=== PATIENT | male | born 1990 | race American Indian/Alaskan Native ===

== ENCOUNTER 2021-02-07 15:43 | Emergency (ER) | payer SELFPAY ==
[2021-02-07] MEDS ORDERED: LORazepam 2 MG/ML VIAL IV ONE ×3 (17:03→22:43)
[2021-02-07] MEDS ORDERED: SODIUM CHLORIDE 0.9% 1000 ML 1,000 ML IV ONE ×2 (17:06→22:20)
[2021-02-07 17:16] LABS: Bacteria,Urine 3+ /HPF (Negative); Bilirubin,Urine NEG (Negative); Blood,Urine NEG (Negative); Color,Urine Amber (Yellow); Granular Casts,Urine 2 /LPF; Hyaline Casts,Urine 2 /LPF; Mucus,Urine 1+ /HPF
[2021-02-07 17:20] LABS: Benzodiazepines Screen,Urine Negative; Methadone Screen,Urine Negative; Opiate Screen,Urine Negative
--- NOTE | 2021-02-07 17:23 | Emergency Department Report ---
ED General Adult HPI - General Chief complaint: Overdose Stated complaint: METH, WEED Time Seen by Provider: 02/07/21 17:03 Source: patient Mode of arrival: Wheelchair Limitations: Altered Mental Status - History of Present Illness Initial comments: 30-year-old male, history of schizophrenia, presents to ED for evaluation. Patient was wandering around a hotel when someone called 911 because patient appeared to be suspicious. EMS states patient revealed to them that he has been using methamphetamine and marijuana today. Patient denied any SI or HI. Appeared to be responding to internal stimuli. EMS reports patient appears to be anxious and tremulous. States vitals were normal en route. Upon placing patient in the room, patient apparently found a 19-gauge, 1.5 inch needle, and stuck it in his right neck. The needle was removed by staff, and dressing placed over it. No active bleeding, no hematoma present. Patient states "I am addicted to meth." Patient has no complaints. -: This afternoon Severity scale (0 -10): 0 Improves with: none Worsens with: none Associated Symptoms: denies other symptoms - Related Data Allergies Allergy/AdvReac Type Severity Reaction Status Date / Time Unable to Assess Allergy Unverified 02/07/21 17:04 ED Review of Systems ROS: Stated complaint: METH, WEED Other details as noted in HPI Comment: All other systems reviewed and negative Psychiatric: auditory hallucinations ED Past Medical Hx - Past Medical History Previous Medical History?: Yes Hx Diabetes: Yes Hx Psychiatric Treatment: Yes (schizophrenia) - Surgical History Additional Surgical History: unknown ED Physical Exam - General Limitations: Altered Mental Status General appearance: alert, in no apparent distress - Head Head exam: Present: atraumatic, normocephalic - Eye Eye exam: Present: normal appearance - ENT ENT exam: Present: mucous membranes moist - Neck Neck exam: Present: normal inspection, other (No hematoma present, no active bleeding) - Respiratory Respiratory exam: Present: normal lung sounds bilaterally. Absent: respiratory distress - Cardiovascular Cardiovascular Exam: Present: normal rhythm, tachycardia - GI/Abdominal GI/Abdominal exam: Present: soft. Absent: distended, tenderness - Extremities Exam Extremities exam: Present: normal inspection - Neurological Exam Neurological exam: Present: alert, CN II-XII intact. Absent: motor sensory deficit - Psychiatric Psychiatric exam: Present: flat affect, other (Appears to be responding to internal stimuli) - Skin Skin exam: Present: warm, dry, intact, normal color ED Course Vital Signs 02/07/21 02/07/21 02/07/21 16:59 17:01 17:04 Temperature 98.9 F Pulse Rate 121 H 124 H 112 H Respiratory 28 H 25 H 26 H Rate Blood Pressure 176/95 Blood Pressure 176/95 [Left] O2 Sat by Pulse 97 100 Oximetry 02/07/21 02/07/21 02/07/21 17:31 18:00 18:34 Temperature Pulse Rate 124 H 112 H Respiratory 28 H 27 H Rate Blood Pressure 174/117 183/114 183/114 Blood Pressure [Left] O2 Sat by Pulse Oximetry 02/07/21 02/07/21 02/07/21 19:01 19:31 20:01 Temperature Pulse Rate 97 H 99 H Respiratory 32 H 21 Rate Blood Pressure 183/112 192/164 187/113 Blood Pressure [Left] O2 Sat by Pulse Oximetry 02/07/21 02/07/21 02/07/21 20:09 20:31 21:01 Temperature Pulse Rate 83 82 Respiratory 16 24 Rate Blood Pressure 187/113 165/120 170/121 Blood Pressure [Left] O2 Sat by Pulse Oximetry 02/07/21 02/07/21 02/07/21 21:31 22:01 22:30 Temperature Pulse Rate 81 98 H Respiratory 14 18 Rate Blood Pressure 170/121 175/112 175/112 Blood Pressure [Left] O2 Sat by Pulse Oximetry 02/07/21 02/07/21 02/07/21 22:31 22:51 23:01 Temperature Pulse Rate 87 111 H Respiratory 30 H 25 H 13 Rate Blood Pressure 170/119 153/92 152/101 Blood Pressure [Left] O2 Sat by Pulse Oximetry 02/07/21 02/08/21 02/08/21 23:31 00:11 01:00 Temperature 98.2 F Pulse Rate 112 H 112 H Respiratory 21 18 Rate Blood Pressure 146/95 161/106 Blood Pressure 107/65 [Left] O2 Sat by Pulse 97 Oximetry 02/08/21 02/08/21 02/09/21 08:44 20:02 04:18 Temperature 97.8 F 98.2 F Pulse Rate 73 79 Respiratory 18 18 18 Rate Blood Pressure Blood Pressure 110/67 154/99 [Left] O2 Sat by Pulse 100 96 99 Oximetry 02/09/21 02/09/21 08:17 09:53 Temperature 97.9 F 97.9 F Pulse Rate 81 69 Respiratory 20 18 Rate Blood Pressure 125/83 Blood Pressure 125/83 [Left] O2 Sat by Pulse 99 98 Oximetry - Reevaluation(s) Reevaluation #1: 02/07/21 19:25 Patient somewhat improved. Tachycardia has resolved. He is now speaking to me and answering questions. When asked why he stuck the needle in his neck, patient states "I do not know. It's been a long day." Blood pressure is elevated. Patient states he has been told he has high blood pressure before, but he is not taking any medication for it. Patient also reports history of schizophrenia, reports auditory hallucinations, and states that he is not on any psychiatric meds currently. ED Medical Decision Making - Lab Data Result diagrams: 02/07/21 17:08 02/08/21 20:37 - Radiology Data Radiology results: report reviewed, image reviewed - Medical Decision Making 30-year-old male presents to ED after using methamphetamine and marijuana. Upon arrival here in the ED patient stuck himself in the neck with a 19-gauge needle. When asked if this was a suicide attempt, patient reports that he just had a long day. Ativan 2 mg IV were given at that time, along with 1 L bolus of IV fluids. CT head, CTA neck are normal. CT abdomen and pelvis was obtained s econdary to elevated liver enzymes. This also appears to be normal. Initial labs showed potassium of 5.7. There was likely some hemolysis in this sample as patient has normal renal function. Repeat potassium shows level of 3.3. Patient given p.o. potassium replacement. Urine shows evidence of UTI. Bactrim has been ordered. Patient given IV labetalol for his blood pressure. Critical care attestation.: If time is entered above; I have spent that time in minutes in the direct care of this critically ill patient, excluding procedure time. ED Disposition Clinical Impression: Methamphetamine abuse, Marijuana abuse, Schizophrenia, UTI (urinary tract infection), Uncontrolled hypertension, Puncture wound of neck Disposition: [id number]/[id number] PSY HOSP/PSY UNIT Is pt being admited?: No Condition: Stable Instructions: Hypertension (ED) Referrals: PRIMARY CARE, [Primary Care Provider] - 3-5 Days
[2021-02-07 17:30] LABS: Basophils # (Auto) 0.1 K/mm3 (0.0-0.1); Basophils % (Auto) 0.8 % (0.0-1.8); Eosinophils % (Auto) 0.1 % (0.0-4.3); Hematocrit 50.1 % (35.5-45.6); Hemoglobin 17.2 gm/dl (11.8-15.2); Lymphocytes # (Auto) 1.5 K/mm3 (1.2-5.4); Lymphocytes % (Auto) 18.9 % (13.4-35.0); Mean Corpuscular HGB Conc 34 % (32-34); Mean Corpuscular Volume 90 fl (84-94); Monocytes # (Auto) 0.9 K/mm3 (0.0-0.8); Monocytes % (Auto) 11.2 % (0.0-7.3); Platelet Count 391 K/mm3 (140-440); Red Blood Count 5.59 M/mm3 (3.65-5.03); Red Cell Distribution Width 13.8 % (13.2-15.2)
[2021-02-07 17:33] LABS: Amphetamine Screen,Urine Positive; Cannabinoid Screen,Urine Positive; Cocaine Screen,Urine Negative
[2021-02-07 17:55] LABS: BUN/Creatinine Ratio 11; Blood Urea Nitrogen 14 mg/dL (9-20); Calcium 10.1 mg/dL (8.4-10.2)
[2021-02-07 17:56] LABS: Alanine Aminotransferase 107 units/L (7-56); Albumin 4.8 g/dL (3.9-5); Bilirubin,Direct < 0.2 mg/dL (0-0.2)
[2021-02-07] MEDS ORDERED: POTASSIUM CHLORIDE ER 20 MEQ TAB PO ONE (18:44)
--- NOTE | 2021-02-07 18:49 | Cat Scan Report ---
CT head/brain wo con INDICATION / CLINICAL INFORMATION: 30 years Male; AMS. TECHNIQUE: Routine CT head without contrast. All CT scans at this location are performed using CT dos e reduction for ALARA by means of automated exposure control. COMPARISON: None. FINDINGS: BRAIN / INTRACRANIAL CONTENTS: The brain demonstrate appropriate attenuation. The ventricular system is within normal limits in size and configuration. There is no clear CT evidence of acute intracrania l hemorrhage or significant mass effect. ORBITS: No significant abnormality of visualized orbits. SINUSES / MASTOIDS: No significant abnormality in the visualized paranasal sinuses or mastoid air nay ls. CRANIOCERVICAL JUNCTION: No significant abnormality. ADDITIONAL FINDINGS: None. IMPRESSION: 1. There is no CT evidence of acute intracranial process. Signer Name: Cristóbal Conrad MD Signed: 02/07/2021 6:45 PM Workstation Name: [id number]
--- NOTE | 2021-02-07 18:55 | Cat Scan Report ---
CT ABDOMEN AND PELVIS WITH CONTRAST INDICATION: elevated liver enzymes. TECHNIQUE: Axial CT images were obtained through the abdomen and pelvis after 100 cc Omni [address] scans at this location are performed using CT dose reduction for ALARA by means of automated expos ure control. COMPARISON: None available. FINDINGS: LOWER CHEST: No significant abnormality. LIVER: No significant abnormality. GALLBLADDER: No significant abnormality. BILE DUCTS: No significant abnormality. PANCREAS: No significant abnormality. SPLEEN: No significant abnormality. ADRENALS: No significant abnormality. RIGHT KIDNEY and URETER: No significant abnormality. LEFT KIDNEY and URETER: No significant abnormality. STOMACH and SMALL BOWEL: No significant abnormality. COLON: No significant abnormality. APPENDIX: No significant abnormality. PERITONEUM: No free fluid. No free air. No fluid collection. LYMPH NODES: No significant adenopathy. AORTA and ARTERIES: No significant abnormality. IVC and VEINS: No significant abnormality. URINARY BLADDER: No significant abnormality. REPRODUCTIVE ORGANS: No significant abnormality. ADDITIONAL FINDINGS: None. SKELETAL SYSTEM: No significant abnormality. IMPRESSION: 1. No significant abnormality. Signer Name: Otto Leahy MD Signed: 02/07/2021 6:51 PM Workstation Name: [id number]
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
[2021-02-07] MEDS ORDERED: hydrALAZINE 20 MG/1 ML INJ IV ONE (22:20)
[2021-02-07] MEDS: SULFAMETHOXAZOLE/TRIMETHOPRIM 800/160MG DS TAB PO SCH (22:30)
--- NOTE | 2021-02-08 09:14 | Consultation ---
History of Present Illness - Reason for Consult Consult date: 02/08/21 Reason for consult: SI/Psychosis - History of Present Psychiatric Illness Per ED Note: 30-year-old male, history of schizophrenia, presents to ED for evaluation. Patient was wandering around a hotel when someone called 911 because patient appeared to be suspicious. EMS states patient revealed to them that he has been using methamphetamine and marijuana today. Patient denied any SI or HI. Appeared to be responding to internal stimuli. EMS reports patient appears to be anxious and tremulous. States vitals were normal en route. Upon placing patient in the room, patient apparently found a 19-gauge, 1.5 inch needle, and stuck it in his right neck. The needle was removed by staff, and dressing placed over it. No active bleeding, no hematoma present. Patient states "I am addicted to meth." Patient has no complaints. During my assessment of 30y/o Shmuel Hernadez, the patient is calm and cooperative. He is polite. He is a/o x 3. He is conversational. The patient says "me and my addictions got me here." The patient says he felt that people were after him so "I thought I'll take myself out before I let them do it." He says "so I stuck a syringe in my neck." The patient has a bandage to his right neck. He says he is "depressed." The patient denies SI/HI at present, and states "not at the moment, but it was strong earlier." He says "it seem to come and go." He says he's no longer hallucinating, but states "I was from the meth." The patient says "I do need help. It's like it's calling me." The patient then says "my suicidal thoughts, it was so strong. People were really after me." PAST PSYCHIATRIC HISTORY: Diagnoses: schizophrenia Suicide attempts or Self-harm behavior: Denies Prior psychiatric hospitalizations: Yes Substance Abuse history: "Meth" Previous psychiatric medications tried: been off Outpatient treatment: No PAST MEDICAL HISTORY: None reported Family Psychiatric History: None reported or documented SOCIAL HISTORY Marital Status: Living Arrangements: with step parents Employment Status: Unemployed Access to guns/weapons: Denies Education: high school History of Abuse: Denies Legal History: Denies REVIEW OF SYSTEMS Constitutional: Negative for weight loss ENT: Negative for stridor Respiratory: Negative for cough or hemoptysis All other systems reviewed and are negative MENTAL STATUS EXAMINATION General Appearance and Behavior: Age appropriate, good hygiene, not wearing appropriate clothes, calm, cooperative, polite Cooperation: Participating Psychomotor Behavior: Psychomotor normal Mood: Depressed Affect and affective range: Restricted Thought Process: goal directed Speech: Normal tone and pace Thought Content Suicidal Ideation: Yes Homicidal Ideation: Denies Hallucinations: Denies at present Delusions: None elicited Impulse Control: Limited Insight and Judgment: Limited insight and judgment Memory: Limited Attention: Undivided Orientation: A/o x 3 Assessment and Plan (1) Schizophrenia Treatment Plan 1013 Start Risperidone 0.5mg po BID Start Depakote DR 125mg po BID Start Trazodone 50mg po qhs Sitter: Defer to primary Medical: Per primary Disposition: Recommend acute psychiatric inpatient Will follow. Thank you for this consult. Case staffed with Dr. Ibarra. Medications and Allergies Allergies Allergy/AdvReac Type Severity Reaction Status Date / Time Unable to Assess Allergy Unverified 02/07/21 17:04 Active Meds: Active Medications Trimethoprim/Sulfamethoxazole (Sulfamethoxazole/Trimethoprim 800/160mg Ds Tab) 1 each PO Q12HR GREGORY; Protocol Stop: 02/10/21 10:01 Last Admin: 02/07/21 22:30 Dose: 1 each Documented by: Mental Status Exam - Vital signs Last Vital Signs Temp 97.8 F 02/08/21 08:44 Pulse 73 02/08/21 08:44 Resp 18 02/08/21 08:44 BP 110/67 02/08/21 08:44 Pulse Ox 100 02/08/21 08:44 Results Result Diagrams: 02/07/21 17:08 02/07/21 18:09 Abnormal lab results 02/07/21 02/07/21 02/07/21 Range/Units 17:08 17:08 17:08 RBC 5.59 H (3.65-5.03) M/mm3 Hgb 17.2 H (11.8-15.2) gm/dl Hct 50.1 H (35.5-45.6) % [place] % (Auto) 11.2 H (0.0-7.3) % [place] # (Auto) 0.9 H (0.0-0.8) K/mm3 Sodium 135 L (137-145) mmol/L Potassium 5.7 H (3.6-5.0) mmol/L Chloride 97.4 L (98-107) mmol/L Glucose 119 H (75-100) mg/dL AST (5-40) units/L ALT (7-56) units/L Total Creatine Kinase (55-170) units/L Total Protein (6.3-8.2) g/dL Urine WBC (Auto) (0.0-6.0) /HPF U Epithel Cells (Auto) (0-13.0) /HPF Salicylates < 0.3 L (2.8-20.0) mg/dL Acetaminophen (10.0-30.0) ug/mL 02/07/21 02/07/21 02/07/21 Range/Units 17:08 17:08 17:08 RBC (3.65-5.03) M/mm3 Hgb (11.8-15.2) gm/dl Hct (35.5-45.6) % [place] % (Auto) (0.0-7.3) % [place] # (Auto) (0.0-0.8) K/mm3 Sodium (137-145) mmol/L Potassium (3.6-5.0) mmol/L Chloride (98-107) mmol/L Glucose (75-100) mg/dL AST 80 H (5-40) units/L ALT 107 H (7-56) units/L Total Creatine Kinase 237 H (55-170) units/L Total Protein 8.7 H (6.3-8.2) g/dL Urine WBC (Auto) (0.0-6.0) /HPF U Epithel Cells (Auto) (0-13.0) /HPF Salicylates (2.8-20.0) mg/dL Acetaminophen 5.0 L (10.0-30.0) ug/mL 02/07/21 02/07/21 Range/Units 18:09 Unknown RBC (3.65-5.03) M/mm3 Hgb (11.8-15.2) gm/dl Hct (35.5-45.6) % [place] % (Auto) (0.0-7.3) % [place] # (Auto) (0.0-0.8) K/mm3 Sodium (137-145) mmol/L Potassium 3.3 L D (3.6-5.0) mmol/L Chloride (98-107) mmol/L Glucose (75-100) mg/dL AST (5-40) units/L ALT (7-56) units/L Total Creatine Kinase (55-170) units/L Total Protein (6.3-8.2) g/dL Urine WBC (Auto) 37.0 H (0.0-6.0) /HPF U Epithel Cells (Auto) 16.0 H (0-13.0) /HPF Salicylates (2.8-20.0) mg/dL Acetaminophen (10.0-30.0) ug/mL All other labs normal.
[2021-02-08] MEDS: SULFAMETHOXAZOLE/TRIMETHOPRIM 800/160MG DS TAB PO SCH ×2 (11:00→22:42)
[2021-02-08] MEDS: QUEtiapine 25 MG TAB PO SCH ×2 (11:00→22:30)
[2021-02-08] MEDS: DIVALPROEX DR 125 MG TAB PO SCH ×2 (11:00→22:29)
--- NOTE | 2021-02-08 11:45 | Electrocardiograph Report ---
[facility] Test Date: 2021-02-08 Test Time: 00:53:06 Pat Name: JUAN CARLOS RAMIREZ Department: Room: Gender: M P[employer]itcher: [place] : 1990 Requested By: SHAKIRA MANNING Order Number: [id number] Reading MD: Doni Collazo Measurements Intervals [place] Rate: 109 P: 58 LA: 179 QRS: -17 QRSD: 107 T: 53 QT: 325 QTc: 437 Interpretive Statements Sinus tachycardia Probable left atrial enlargement No previous ECG available for comparison Electronically Signed On 02-08-2021 11:45:08 EDT by Doni Collazo
[2021-02-08] MEDS ORDERED: NICOTINE 14 MG/24 HR PATCH TD STA (13:09)
[2021-02-08 21:13] LABS: Alanine Aminotransferase 89 units/L (7-56); Albumin 4.2 g/dL (3.9-5); BUN/Creatinine Ratio 13; Blood Urea Nitrogen 13 mg/dL (9-20); Calcium 9.1 mg/dL (8.4-10.2); Hemolysis Index 13
[2021-02-08] MEDS ORDERED: traZODone 50 MG TAB PO SCH (22:00)
[2021-02-09] MEDS ORDERED: LORazepam 2 MG/ML VIAL IM ONE (01:34)
[2021-02-09 09:07] VITALS: BP 125/83
== END 2021-02-09 10:34 ==
LOC: ED 15:43
DX: S11.93XA Puncture wound without foreign body of unspecified part of neck, initial encounter (principal); F15.10 Other stimulant abuse, uncomplicated; F12.10 Cannabis abuse, uncomplicated; F20.9 Schizophrenia, unspecified; I10 Essential (primary) hypertension; N39.0 Urinary tract infection, site not specified; E11.9 Type 2 diabetes mellitus without complications; Z20.822 Contact with and (suspected) exposure to COVID-19; X58.XXXA Exposure to other specified factors, initial encounter; Y93.89 Activity, other specified; Y92.89 Other specified places as the place of occurrence of the external cause; Y99.8 Other external cause status
CPT/HCPCS: 36415; 70450; 70498; 74177; 80048; 80076; 80307; 81001; 82550; 84132; 85025; 87076; 87086; 87186; 93005; 96361; 96372; 96374; 96375; 96376; 99285; J0360; J2060; J7030; Q9967; 80320; G0480